=== PATIENT | female | born 1970 | race Caucasian/White ===

== ENCOUNTER 2020-10-11 16:33 | Emergency (ER) | payer OTHER ==
[~2020-10-11] VITALS: Ht 162.6 cm; Wt 127.0 kg
[~2020-10-11 16:33] MED LIST: AMBIEN 10 MG TA10 MG PO; AMMONIUM LACTA225 GM TOP; AMOXICILLIN 50500 M1 PO; ATIVAN1 MG PO; AZITHROMYCIN 2250 MG PO; CLEOCIN HCL300 MG PO; COMBIVENT INH; DEPAKOTE250 MG PO; HYDROXYZINE HCL10 M1 PO; LEVOTHYROXINE0.05 MG PO; LIDOCAINE 22 %/30 GM TOP; MEDROL DOSPAK21 TAB PO; NORCO 5-325 TA1 EACH PO; PERCOCET 5-3251 EACH PO; PHENERGAN-CODE120 ML PO; SYNTHROID25 MCG PO
[2020-10-11] MEDS ORDERED: LYRICA150 MG PO (16:45)
[2020-10-11] MEDS ORDERED: CLONAZEPAM 0.50.5 M1 PO (16:45)
[2020-10-11] MEDS ORDERED: NORVASC 2.5 MG2.5 M1 PO (16:46)
[2020-10-11] MEDS ORDERED: INDERAL LA120 M1 PO (16:46)
[2020-10-11] MEDS ORDERED: NORCO 5-325 TA1 EAC2 PO (18:31)
[2020-10-11 18:47] VITALS: BP 131/76
== END 2020-10-11 18:49 | disposition home or self-care (01) ==
LOC: M.ERS 16:33
DX: M25.562 Pain in left knee (principal); J44.9 Chronic obstructive pulmonary disease, unspecified; F17.210 Nicotine dependence, cigarettes, uncomplicated; G62.9 Polyneuropathy, unspecified; Z88.6 Allergy status to analgesic agent; Z88.2 Allergy status to sulfonamides; Z88.8 Allergy status to other drugs, medicaments and biological substances; Z90.49 Acquired absence of other specified parts of digestive tract; Z90.710 Acquired absence of both cervix and uterus; Z98.51 Tubal ligation status

== ENCOUNTER 2020-10-31 15:32 | Emergency (ER) | payer OTHER ==
[~2020-10-31] VITALS: Ht 162.6 cm; Wt 105.7 kg
[~2020-10-31 15:32] MED LIST changes: +CLONAZEPAM 0.50.5 M1 PO; +INDERAL LA120 M1 PO; +LYRICA150 MG PO; +NORCO 5-325 TA1 EAC2 PO; +NORVASC 2.5 MG2.5 M1 PO
[2020-10-31] MEDS ORDERED: NORCO 5-325 TA1 EAC2 PO ×2 (16:48→18:08)
[2020-10-31 17:05] VITALS: BP 143/86
== END 2020-10-31 17:05 | disposition home or self-care (01) ==
LOC: M.ERS 15:32
DX: M25.562 Pain in left knee (principal); J44.9 Chronic obstructive pulmonary disease, unspecified; G62.9 Polyneuropathy, unspecified; F17.210 Nicotine dependence, cigarettes, uncomplicated; Z91.041 Radiographic dye allergy status; Z88.2 Allergy status to sulfonamides; Z88.8 Allergy status to other drugs, medicaments and biological substances; Z90.49 Acquired absence of other specified parts of digestive tract; Z90.710 Acquired absence of both cervix and uterus; Z98.51 Tubal ligation status

== ENCOUNTER 2021-03-30 18:52 | Emergency (ER) | payer OTHER, MEDICAID ==
[~2021-03-30] VITALS: Ht 162.6 cm; Wt 113.4 kg
[2021-03-30] MEDS ORDERED: CLONAZEPAM 0.50.5 M1 PO (19:08)
[2021-03-30] MEDS ORDERED: OZOBAX5 MG/5 ML PO (19:08)
[2021-03-30] MEDS ORDERED: DESYREL150 MG PO (19:08)
[2021-03-30] MEDS ORDERED: ACETAMINOPHEN-1 EAC2 PO ×2 (19:44→19:49)
[2021-03-30] MEDS ORDERED: MEDROLDOSEPACK PO ×2 (19:44→19:49)
[2021-03-30 20:02] VITALS: BP 113/55
== END 2021-03-30 20:02 | disposition home or self-care (01) ==
LOC: M.ERS 18:52
DX: S83.8X2A Sprain of other specified parts of left knee, initial encounter (principal); I10 Essential (primary) hypertension; F17.210 Nicotine dependence, cigarettes, uncomplicated; Z90.49 Acquired absence of other specified parts of digestive tract; Z90.710 Acquired absence of both cervix and uterus; Z98.51 Tubal ligation status; Z91.041 Radiographic dye allergy status; Z88.2 Allergy status to sulfonamides; Z88.6 Allergy status to analgesic agent; X50.1XXA Overexertion from prolonged static or awkward postures, initial encounter; Y93.89 Activity, other specified; Y92.89 Other specified places as the place of occurrence of the external cause; Y99.8 Other external cause status

== ENCOUNTER 2021-04-26 20:13 | Emergency (ER) | payer OTHER, MEDICAID ==
[~2021-04-26] VITALS: Ht 162.6 cm; Wt 116.1 kg
[~2021-04-26 20:13] MED LIST changes: +ACETAMINOPHEN-1 EAC2 PO; +DESYREL150 MG PO; +MEDROLDOSEPACK PO; +OZOBAX5 MG/5 ML PO
[2021-04-26] MEDS ORDERED: APAP W/CODEINE1 TA2 PO (20:54)
[2021-04-26 21:01] VITALS: BP 157/88
== END 2021-04-26 21:02 | disposition home or self-care (01) ==
LOC: M.ERS 20:13
DX: G89.29 Other chronic pain (principal); M25.562 Pain in left knee; J44.9 Chronic obstructive pulmonary disease, unspecified; I10 Essential (primary) hypertension; F17.210 Nicotine dependence, cigarettes, uncomplicated; Z91.041 Radiographic dye allergy status; Z88.2 Allergy status to sulfonamides; Z88.6 Allergy status to analgesic agent; Z88.8 Allergy status to other drugs, medicaments and biological substances; Z90.49 Acquired absence of other specified parts of digestive tract; Z90.710 Acquired absence of both cervix and uterus; Z98.51 Tubal ligation status